=== PATIENT | female | born 1950 | race Caucasian/White ===

== ENCOUNTER → 2016-12-14 | Outpatient (CLI) | payer OTHER ==
[~2016-12-14] VITALS: Ht 157.5 cm; Wt 104.3 kg
[~2016-12-14] MED LIST: ARIMIDEX1 MG PO; ASPIR 8181 M1 PO; ASPIRIN81 M1; ATENOLOL-CHLORTHAL 5; CALCIO DEL MAR500 MG PO; CENTRUM SILVER1 EAC3; CENTRUM SILVER1 EAC4 PO; DOMP10T PO; DOMPERIDONE PO; GLUCOSAMINE CH1 EAC2 PO; LEVOTHYROXINE112 MCG; LEVOTHYROXINE112 MCG PO; NEXIUM40 MG; NEXIUM40 MG PO; PHENTERMINE H37.5 MG PO; SIMVASTATIN20 MG PO; VICODIN,LORT1 TABLET; ZESTORETIC 20-1 EAC1 PO
== END | disposition home or self-care (01) ==
LOC: AMB 13:26
PROC: 0DBP8ZX Excision of Rectum, Via Natural or Artificial Opening Endoscopic, Diagnostic (ICD-10-PCS; principal; 2016-12-14)
DX: Z12.11 Encounter for screening for malignant neoplasm of colon (principal); D12.8 Benign neoplasm of rectum; Z86.010 Personal history of colon polyps; Z85.3 Personal history of malignant neoplasm of breast; K59.00 Constipation, unspecified; K21.9 Gastro-esophageal reflux disease without esophagitis; K31.84 Gastroparesis; I10 Essential (primary) hypertension; Z85.42 Personal history of malignant neoplasm of other parts of uterus; E03.9 Hypothyroidism, unspecified; E66.9 Obesity, unspecified; Z68.41 Body mass index [BMI] 40.0-44.9, adult; G47.30 Sleep apnea, unspecified; Z92.3 Personal history of irradiation; Z90.710 Acquired absence of both cervix and uterus; Z87.891 Personal history of nicotine dependence; Z79.82 Long term (current) use of aspirin; Z88.0 Allergy status to penicillin
CPT/HCPCS: 88305